=== PATIENT | female | born 1955 | race Caucasian/White ===

== ENCOUNTER 2017-07-02 10:32 | Day surgery (SDC) | payer BC ==
[~2017-07-02 10:32] MED LIST: Lactated Ringers 1,000 ML IV SCH; Lidocaine 1% 4 ML ONE; Lidocaine 1%/Sod Bicarbonate in NS 8.4% 1 ML Syringe PRN; Midazolam 1 MG/ML 2 ML SDV ONE; Propofol 200 MG/20 ML SDV ONE; Sodium Chloride 0.9% 10 ML Syringe FLUSH PRN; fentaNYL 100 MCG/2 ML SDV ONE
--- NOTE | 2017-07-02 10:56 | PCM.PREANE ---
Preanesthetic Assessment - Anesthesia/Transfusion/Family Hx Anesthesia History: Prior Anesthesia Without Reaction Family History of Anesthesia Reaction: No Transfusion History: No Prior Transfusion(s) - Review of Systems General: No Symptoms Pulmonary: No Symptoms Cardiovascular: Palpitations (ALWAYS HAS--normal for her) Gastrointestinal: No Symptoms Neurological: No Symptoms Other: Reports: Diabetes (borderline), Thyroid Problems, Depression, Anxiety - Physical Assessment NPO Status Date: 07/01/17 NPO Status Time: 20:00 Pulse: 50 O2 Sat by Pulse Oximetry: 95 Respiratory Rate: 16 Blood Pressure: 145/59 Temperature: 98.4 F Height: 5 ft 2 in Weight: 95 kg ASA Class: 2 Mental Status: Alert & Oriented x3 Airway Class: Mallampati = 1 Dentition: Reports: Normal Dentition, [place](s) (caps across front) Thyro-Mental Finger Breadths: 3 Mouth Opening Finger Breadths: 3 ROM/Head Extension: Full Lungs: Clear to Auscultation, Normal Respiratory Effort Cardiovascular: Regular Rate, Regular Rhythm - Allergies Allergies/Adverse Reactions: Allergies Allergy/AdvReac Type Severity Reaction Status Date / Time naproxen [From Naprosyn] Allergy Hives Verified 07/01/17 16:09 Penicillins AdvReac Tremors Verified 07/01/17 16:09 - Blood Blood Available: No - Anesthesia Plan Beta Rajwinder: Bisoprolol Med Last Dose Date: 07/01/17 Med Last Dose Time: 23:00 - Acknowledgements Anesthesia Type Planned: MAC Pt an Appropriate Candidate for the Planned Anesthesia: Yes Alternatives and Risks of Anesthesia Discussed w Pt/Guardian: Yes Pt/Guardian Understands and Agrees with Anesthesia Plan: Yes PreAnesthesia Questionnaire HEENT History: Reports: Impaired Vision, Sinusitis, Other (See Below) Other HEENT History: wears glasses Cardiovascular History: Reports: High Cholesterol, Hypertension, Other (See Below) Other Cardiovascular History: chest pain Respiratory History: Reports: Other (See Below) Other Respiratory History: acute bronchitis, cough [employer]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 Musculoskeletal History: Reports: None Neurological History: Reports: None Psychiatric History: Reports: Anxiety, Depression Endocrine/Metabolic History: Reports: Diabetes, Type II, Hypothyroidism, Obesity /BMI 30+ Hematologic History: Reports: None Immunologic History: Reports: Other (See Below) Other Immunologic History: fever Oncologic (Cancer) History: Reports: None Dermatologic History: Reports: None - Past Surgical History Head Surgeries/Procedures: Reports: None GI Surgical History: Reports: Cholecystectomy, Colonoscopy Female Surgical History: Reports: D&C Endocrine Surgical History: Reports: None Neurological Surgical History: Reports: None Oncologic Surgical History: Reports: None - SUBSTANCE USE Smoking Status *Q: Never Smoker Tobacco Use Within Last Twelve Months: No Second Hand Smoke Exposure: No Days Per Week of Alcohol Use: 1 (once a month) Recreational Drug Use History: No - HOME MEDS Home Medications: Home Meds Aspirin 325 mg PO DAILY 07/01/17 [History] Bisoprolol/Hydrochlorothiazide [Ziac 10-6.25 MG] 1 tab PO DAILY 07/01/17 [ History] Escitalopram Oxalate [Escitalopram Oxalate] 10 mg PO DAILY 07/01/17 [History] Fenofibric Acid (Choline) [Fenofibric Acid] 45 mg PO DAILY 07/01/17 [History] Levothyroxine Sodium [Levothyroxine Sodium] 88 mcg PO DAILY 07/01/17 [History] Multivitamin [Daily Multiple Vitamin] 1 tab PO DAILY 07/01/17 [History] - CURRENT (IN HOUSE) MEDS Current Meds: Current Medications Discontinued Medications Fentanyl (Sublimaze) Confirm Administered Dose 100 mcg .ROUTE .STK-MED ONE Stop: 07/02/17 08:07 Lactated Ringer's (Ringers, Lactated) 1,000 mls @ 125 mls/hr IV ASDIRECTED ARCELIA Stop: 07/01/17 23:00 Lidocaine HCl (Xylocaine-Mpf 1%) Confirm Administered Dose 4 mls @ as directed .ROUTE .STK-MED ONE Stop: 07/02/17 08:06 Lidocaine/Sodium Bicarbonate (Buffered Lidocaine 1% In Ns 8.4%) 0.25 ml .XX ONETIME PRN PRN Reason: Prior to IV Start Stop: 07/01/17 18:00 Midazolam HCl (Versed 1 Mg/Ml) Confirm Administered Dose 2 mg .ROUTE .STK-MED ONE Stop: 07/02/17 08:07 Propofol (Diprivan 20 Ml) Confirm Administered Dose 200 mg .ROUTE .STK-MED ONE Stop: 07/02/17 08:06 Sodium Chloride (Saline Flush) 10 ml FLUSH ASDIRECTED PRN PRN Reason: Keep Vein Open Stop: 07/01/17 18:00
[2017-07-02] MEDS ORDERED: Lactated Ringers 1,000 ML IV SCH (11:00)
[2017-07-02] MEDS ORDERED: Lidocaine 1%/Sod Bicarbonate in NS 8.4% 1 ML Syringe PRN (11:00)
[2017-07-02] MEDS ORDERED: Sodium Chloride 0.9% 10 ML Syringe FLUSH PRN (11:01)
--- NOTE | 2017-07-02 11:37 | PCM48HPAN ---
Post Anesthesia Note - EVALUATION WITHIN 48HRS OF ANESTHETIC Vital Signs in Normal Range: Yes Patient Participated in Evaluation: Yes Respiratory Function Stable: Yes Airway Patent: Yes Cardiovascular Function Stable: Yes Hydration Status Stable: Yes Pain Control Satisfactory: Yes Nausea and Vomiting Control Satisfactory: Yes Mental Status Recovered: Yes
--- NOTE | 2017-07-02 11:41 | PCM.OPNOTE ---
- General Post-Op/Procedure Note Date of Surgery/Procedure: 07/02/17 Operative Procedure(s): Colonoscopy with descending colonic polypectomy 1 using cold forceps Findings: 1. Sigmoid diverticulosis 2. Diminutive polyp descending colon Pre Op Diagnosis: Strong family history of colorectal cancer Post-Op Diagnosis: 1. Sigmoid diverticulosis. 2. Descending colonic polyp Anesthesia Technique: MAC, Moderate Sedation Primary Surgeon: Josesito Dennis Pathology: Descending colonic polyp less than 5 mm in diameter EBL in mLs: 0 Complications: None Condition: Good Free Text/Narrative:: Perianal inspection and digital rectal examination was unremarkable. The sphincter tone was normal. A lubricated colonoscope was inserted into the rectum and advanced under direct vision to the cecum which was identified. The bowel preparation was excellent. The cecum, ascending, and transverse colons were endoscopically normal with no mass lesions or inflammatory changes seen. The proximal descending colon had a very small polyp which was removed with cold forceps. The specimen was retrieved and sent to pathology. The area was hemostatic post biopsy. The sigmoid colon contained several small diverticuli which 1, treated. The proximal rectum was endoscopically normal. The retroflexed view was normal as well. Air was removed as I finished the procedure. Photographs were taken for the patient and for the medical record.
[2017-07-02 11:42] VITALS: BP 125/74
== END 2017-07-02 12:15 | disposition home or self-care (01) ==
LOC: JD.SDS 10:32
PROVIDERS: ATTEND Surgery
DX: Z12.11 Encounter for screening for malignant neoplasm of colon (principal); D12.4 Benign neoplasm of descending colon; Z80.0 Family history of malignant neoplasm of digestive organs; K57.30 Diverticulosis of large intestine without perforation or abscess without bleeding; F41.8 Other specified anxiety disorders; I10 Essential (primary) hypertension; E78.00 Pure hypercholesterolemia, unspecified; E78.5 Hyperlipidemia, unspecified; E03.9 Hypothyroidism, unspecified; E11.9 Type 2 diabetes mellitus without complications; Z88.0 Allergy status to penicillin; Z88.8 Allergy status to other drugs, medicaments and biological substances; Z79.82 Long term (current) use of aspirin; Z79.899 Other long term (current) drug therapy; Z98.890 Other specified postprocedural states; Z78.9 Other specified health status
CPT/HCPCS: 45380; J3010; J7120; 00810; J2250; J2704

== ENCOUNTER 2020-11-17 07:58 | Day surgery (SDC) | payer BC, MEDICARE ==
[~2020-11-17 07:58] MED LIST changes: -Lidocaine 1% 4 ML ONE; +Lidocaine 1%/Sod Bicarbonate in NS 8.4% 1 ML Syringe IDERM PRN; -Lidocaine 1%/Sod Bicarbonate in NS 8.4% 1 ML Syringe PRN; -Midazolam 1 MG/ML 2 ML SDV ONE; -Propofol 200 MG/20 ML SDV ONE; -fentaNYL 100 MCG/2 ML SDV ONE
[2020-11-17] MEDS ORDERED: fentaNYL 250 MCG/5 ML SDV ONE (07:59)
[2020-11-17] MEDS ORDERED: Lidocaine 1% 4 ML ONE (07:59)
[2020-11-17] MEDS ORDERED: Midazolam 1 MG/ML 2 ML SDV ONE (07:59)
[2020-11-17] MEDS ORDERED: Ondansetron 4 MG/2 ML SDV ONE (07:59)
[2020-11-17] MEDS ORDERED: Dexamethasone 4 MG/ML 5 ML MDV ONE (08:00)
[2020-11-17] MEDS ORDERED: Propofol 200 MG/20 ML SDV ONE (08:00)
--- NOTE | 2020-11-17 08:29 | PCM.PREANE ---
Preanesthetic Assessment - Procedure Proposed Procedure: hysteroscopy and d and c - Anesthesia/Transfusion/Family Hx Anesthesia History: Prior Anesthesia Without Reaction Family History of Anesthesia Reaction: No Transfusion History: No Prior Transfusion(s) - Review of Systems General: No Symptoms Pulmonary: No Symptoms Cardiovascular: No Symptoms Gastrointestinal: Abdominal Pain (earlier this week- gone now) Neurological: No Symptoms Other: Reports: Diabetes, Thyroid Problems, Depression, Anxiety - Physical Assessment NPO Status Date: 11/16/20 NPO Status Time: 22:00 Vital Signs: 131/72 65 92% 97.3 16 Height: 5 ft 2 in Weight: 92.3 kg ASA Class: 2 Mental Status: Alert & Oriented x3 Airway Class: Mallampati = 1 Dentition: Reports: Normal Dentition Thyro-Mental Finger Breadths: 3 Mouth Opening Finger Breadths: 3 ROM/Head Extension: Full Lungs: Clear to Auscultation, Normal Respiratory Effort Cardiovascular: Regular Rate, Regular Rhythm, No Murmurs - Lab Values: Laboratory Last Values POC Glucose 170 mg/dL (80-115) H 11/17/20 08:11 Urine Color Yellow (Yellow) 11/17/20 07:55 Urine Appearance Slt cloudy (Clear) H 11/17/20 07:55 Urine pH 5.0 (5.0-8.0) 11/17/20 07:55 Ur Specific [place] 1.025 (1.005-1.030) 11/17/20 07:55 Urine Protein Negative (Negative) 11/17/20 07:55 Urine Glucose (UA) 2+ (Negative) H 11/17/20 07:55 Urine Ketones Negative (Negative) 11/17/20 07:55 Urine Occult Blood Negative (Negative) 11/17/20 07:55 Urine Nitrite Negative (Negative) 11/17/20 07:55 Urine Bilirubin 1+ (Negative) H 11/17/20 07:55 Urine Urobilinogen 0.2 (0.2-1.0) 11/17/20 07:55 Ur Leukocyte Esterase Trace (Negative) H 11/17/20 07:55 - Allergies Allergies/Adverse Reactions: Allergies Allergy/AdvReac Type Severity Reaction Status Date / Time alendronate sodium Allergy Muscle Verified 11/16/20 16:52 [From Fosamax] Aches ciprofloxacin [From Cipro] Allergy Cannot Verified 11/16/20 16:52 Remember naproxen [From Naprosyn] Allergy Hives Verified 11/16/20 16:52 Penicillins AdvReac Tremors Verified 11/16/20 16:52 - Blood Blood Available: No - Anesthesia Plan Beta Rajwinder: Bisoprolol Med Last Dose Date: 11/16/20 Med Last Dose Time: 22:00 - Acknowledgements Anesthesia Type Planned: General Anesthesia Pt an Appropriate Candidate for the Planned Anesthesia: Yes Alternatives and Risks of Anesthesia Discussed w Pt/Guardian: Yes Pt/Guardian Understands and Agrees with Anesthesia Plan: Yes PreAnesthesia Questionnaire HEENT History: Reports: Impaired Vision, Sinusitis, Other (See Below) Other HEENT History: wears glasses Cardiovascular History: Reports: CAD, High Cholesterol, Hypertension, Other (See Below) Other Cardiovascular History: chest pain, abnormal stress test, palpitations, stent Respiratory History: Reports: Other (See Below) Other Respiratory History: acute bronchitis, cough, snores Gastrointestinal History: Reports: Other (See Below) Other Gastrointestinal History: bloody stools, diarrhea, rectal polyp 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: Musculoskeletal History: Reports: Neck Pain, Chronic, Other (See Below) Other Musculoskeletal History: left shoulder pain Neurological History: Reports: Other (See Below) Other Neuro History: dizziness, headache Psychiatric History: Reports: Anxiety, Depression Endocrine/Metabolic History: Reports: Diabetes, Type II, Hypothyroidism, Obesity/BMI 30+ Hematologic History: Reports: None Immunologic History: Reports: Other (See Below) Other Immunologic History: fever Oncologic (Cancer) History: Reports: None Dermatologic History: Reports: None - Past Surgical History Head Surgeries/Procedures: Reports: None Cardiovascular Surgical History: Reports: Coronary Artery Stent GI Surgical History: Reports: Cholecystectomy, Colonoscopy Female Surgical History: Reports: D&C Endocrine Surgical History: Reports: None Neurological Surgical History: Reports: None Oncologic Surgical History: Reports: None Dermatological Surgical History: Reports: None - SUBSTANCE USE Tobacco Use Status *Q: Never Tobacco User Tobacco Use Within Last Twelve Months: No Second Hand Smoke Exposure: No Days Per Week of Alcohol Use: 0 Recreational Drug Use History: No - HOME MEDS Home Medications: Home Meds Bisoprolol/Hydrochlorothiazide [Ziac 10-6.25 MG] 1 tab PO DAILY 07/01/17 [History] Escitalopram Oxalate 10 mg PO DAILY 07/01/17 [History] Multivitamin [Daily Multiple Vitamin] 1 tab PO DAILY 07/01/17 [History] Aspirin [Halfprin] 81 mg PO DAILY 11/24/18 [History] atorvaSTATin [Lipitor] 40 mg PO BEDTIME 11/24/18 [History] Empagliflozin [Jardiance] 25 mg PO DAILY 11/16/20 [History] Levothyroxine 112 mcg PO DAILY 11/16/20 [History] lisinopriL [Lisinopril] 5 mg PO DAILY 11/16/20 [History] metFORMIN [Glucophage XR] 500 mg PO BID 11/16/20 [History] - CURRENT (IN HOUSE) MEDS Current Meds: Current Medications Lactated Ringer's (Ringers, Lactated) 1,000 mls @ 125 mls/hr IV ASDIRECTED ARCELIA Lidocaine/Sodium Bicarbonate (Buffered Lidocaine 1% In Ns 8.4%) 0.25 ml IDERM ONETIME PRN PRN Reason: Prior to IV Start Sodium Chloride (Saline Flush) 10 ml FLUSH ASDIRECTED PRN PRN Reason: Keep Vein Open Discontinued Medications Dexamethasone (Dexamethasone) Confirm Administered Dose 20 mg .ROUTE .STK-MED ONE Stop: 11/17/20 08:01 Fentanyl (Sublimaze) Confirm Administered Dose 250 mcg .ROUTE .STK-MED ONE Stop: 11/17/20 08:00 Lidocaine HCl (Xylocaine-Mpf 1%) Confirm Administered Dose 4 mls @ as directed .ROUTE .STK-MED ONE Stop: 11/17/20 08:00 Midazolam HCl (Versed 1 Mg/Ml) Confirm Administered Dose 2 mg .ROUTE .STK-MED ONE Stop: 11/17/20 08:00 Ondansetron HCl (Zofran) Confirm Administered Dose 4 mg .ROUTE .STK-MED ONE Stop: 11/17/20 08:00 Propofol (Diprivan 20 Ml) Confirm Administered Dose 200 mg .ROUTE .STK-MED ONE Stop: 11/17/20 08:01
[2020-11-17] MEDS ORDERED: Ondansetron 4 MG/2 ML SDV IVPUSH PRN (09:24)
[2020-11-17] MEDS ORDERED: HYDROmorphone 0.5 MG/0.5 ML Syringe IVPUSH PRN (09:24)
[2020-11-17] MEDS ORDERED: fentaNYL 100 MCG/2 ML SDV IVPUSH PRN (09:24)
[2020-11-17] MEDS ORDERED: Ketorolac 30 MG/ML SDV ONE (09:28)
[2020-11-17] MEDS ORDERED: ePHEDrine 50 MG/ML SDV ONE (09:32)
[2020-11-17] MEDS ORDERED: Lactated Ringers 1,000 ML ONE (09:40)
--- NOTE | 2020-11-17 09:57 | PCM.POSTAN ---
POST ANESTHESIA ASSESSMENT - MENTAL STATUS Mental Status: Alert, Oriented - VITAL SIGNS Vital Signs: Last Vital Signs Temp 97.3 F 11/17/20 08:10 Pulse 64 11/17/20 08:10 Resp 16 11/17/20 08:10 BP 131/72 11/17/20 08:10 Pulse Ox 92 L 11/17/20 08:10 0951 81 14 98.0 152/84 96% - RESPIRATORY Respiratory Status: Respiratory Rate WNL, Airway Patent, O2 Saturation Stable, Supplemental Oxygen - CARDIOVASCULAR CV Status: Pulse Rate WNL, Blood Pressure Stable - GASTROINTESTINAL GI Status: No Symptoms - PAIN Pain Score: 0 - POST OP HYDRATION Hydration Status: Adequate & Stable
--- NOTE | 2020-11-17 11:40 | PCM48HPAN ---
Post Anesthesia Note - EVALUATION WITHIN 48HRS OF ANESTHETIC Vital Signs in Normal Range: Yes Patient Participated in Evaluation: Yes Respiratory Function Stable: Yes Airway Patent: Yes (encourage deep breathing and coughing) Cardiovascular Function Stable: Yes Hydration Status Stable: Yes Pain Control Satisfactory: Yes Nausea and Vomiting Control Satisfactory: Yes Mental Status Recovered: Yes (rests- denies nausea- states stomach hurts a bit) Vital Signs: Last Vital Signs Temp 98.0 F 11/17/20 09:51 Pulse 69 11/17/20 11:30 Resp 16 11/17/20 11:30 BP 131/85 11/17/20 11:30 Pulse Ox 99 11/17/20 11:30
--- NOTE | 2020-11-17 12:11 | PCM.OPNOTE ---
- General Post-Op/Procedure Note Date of Surgery/Procedure: 11/17/20 Operative Procedure(s): Hysteroscopy with dilation and curettage Findings: Grossly normal-appearing cervix without any bleeding from the cervical opening. Endometrial cavity with wispy fibrous tissue between the uterine figueredo. No polyps or thickened endometrium noted. Difficult to visualize the bilateral ostia due to the fibrous tissue present in the endometrial cavity. Small amount of endometrial tissue obtained with curettage. Pre Op Diagnosis: Postmenopausal bleeding with focal glandular crowding on endometrial biopsy Post-Op Diagnosis: Same Anesthesia Technique: General LMA Primary Surgeon: Stefano Powers Anesthesia Provider: Renee Sofia Pathology: Endometrial curettings Fluid Replacement, Intraop: 900 Output, Urine Amount: 0 (Voided prior to procedure) EBL in mLs: 30 Complications: None Condition: Good Free Text/Narrative:: Length of procedure: 20 minutes Procedure in Detail: Patient was seen in the preop area and counseled on risks, benefits and alternatives of the procedure and consents were signed prior to going back to the OR. She was taken back to OR #4 and given general anesthesia with laryngeal mask airway that was placed without difficulty. She was placed in dorsal lithotomy position using Yellofin stirrups. She was prepped and draped in a normal sterile fashion. A weighted speculum was placed in the vagina and the cervix was visualized with use of a right angle retractor. The anterior lip of the cervix was grasped with a single toothed tenaculum. The cervix was serially dilated to a 15 [place] dilator. A 5 mm hysteroscope was inserted into the uterine cavity and advanced to the uterine fundus. The ostia were difficult to see bilaterally due to the wispy fibrous tissue that was present in the endometrial cavity. The uterine cavity was noted to be overall normal in appearance with fibrous tissue noted for the entirety of the cavity. The hysteroscope was removed and a sharp curette was used to circumferentially curette the entirety of the uterine cavity where good cri was present in all directions. The curettings were sent for pathology. The procedure was complete at this time and the tenaculum was removed from the cervix. There was a small amount of bleeding noted from the tenaculum site on the right side of the cervix that was able to be controlled with direct pressure with a ring forceps and silver nitrate sticks. After the use of the ring forceps and silver nitrate good hemostasis was noted. All instruments were removed from the vagina. All needle and sponge counts were correct x 2. The patient was awoken and taken back to the recovery room in stable condition. Review of images IMG 001: Right fundal portion of the endometrial cavity where suspected tubal ostia is located, unable to visualize tubal ostia due to overlying tissue IMG 002: Left fundal portion of the endometrial cavity where suspected tubal ostia is located, unable to visualize tubal ostia due to overlying tissue IMG 003: Attempted global view of the endometrial cavity with difficulty visualization due to cloudy coloring in the fluid The patient will be discharged home when she is ambulating, tolerating PO, pain is well controlled with PO medications and she is voiding normally. She will follow up with Dr. Powers in the clinic within the next 1-2 weeks. She was given strict precautions to call the medical office or go to the Emergency Department if she is having severe vaginal bleeding of more than 1 pad per hour for three hours, uncontrollable pain, nausea, vomiting, or if she is having a fever greater than 100.4 FSabino Powers MD 12:09 PM 11/17/2020
[2020-11-17 12:56] VITALS: BP 122/65; PULSE 65
== END 2020-11-17 12:25 | disposition home or self-care (01) ==
LOC: JD.SDS 07:58
PROVIDERS: ATTEND Obstetrics & Gynecology
DX: N85.01 Benign endometrial hyperplasia (principal); E11.9 Type 2 diabetes mellitus without complications; E03.9 Hypothyroidism, unspecified; I10 Essential (primary) hypertension; E78.5 Hyperlipidemia, unspecified; I25.10 Atherosclerotic heart disease of native coronary artery without angina pectoris; E66.9 Obesity, unspecified; Z68.38 Body mass index [BMI] 38.0-38.9, adult; Z88.1 Allergy status to other antibiotic agents; Z88.0 Allergy status to penicillin; Z88.8 Allergy status to other drugs, medicaments and biological substances; Z79.84 Long term (current) use of oral hypoglycemic drugs; Z79.82 Long term (current) use of aspirin; Z79.890 Hormone replacement therapy; Z79.899 Other long term (current) drug therapy; Z95.5 Presence of coronary angioplasty implant and graft
CPT/HCPCS: 58558; 81003; 82962; J1100; J1885; J2250; J2405; J2704; J3010; J7120; 00952

== ENCOUNTER 2021-01-12 07:05 | Day surgery (SDC) | payer BC, MEDICARE ==
[2021-01-09 11:13] LABS: HEMOGLOBIN A1C 7.3 %
--- NOTE | 2021-01-10 10:25 | PCM.PREANE ---
Preanesthetic Assessment - Procedure Proposed Procedure: Laparoscopic Assisted Vaginal Hysterectomy with BSO - Anesthesia/Transfusion/Family Hx Anesthesia History: Prior Anesthesia Reaction Type of Anesthesia Reaction: Excessive Nausea/Vomiting Family History of Anesthesia Reaction: No Transfusion History: No Prior Transfusion(s) Intubation History: Unknown - Review of Systems General: No Symptoms Pulmonary: No Symptoms (ETOH: occasionally) Cardiovascular: No Symptoms (HTN, elevated cholesterol, CAD-stents 2019, PVC's), Palpitations Gastrointestinal: No Symptoms Neurological: No Symptoms, Headache (migraines) Other: Reports: None, Diabetes (152 blood sugar @ 0730), Thyroid Problems (Hypothyroid), Depression, Anxiety - Physical Assessment NPO Status Date: 01/11/21 NPO Status Time: 22:00 Vital Signs: HR:55 B/P:126/62 Sat:96% Temp:97.3 Resp:14 Height: 1.57 m Weight: 92 kg ASA Class: 3 Mental Status: Alert & Oriented x3 Airway Class: Mallampati = 3 Dentition: Reports: Normal Dentition, Caries Thyro-Mental Finger Breadths: 3 Mouth Opening Finger Breadths: 3 ROM/Head Extension: Full Lungs: Clear to Auscultation, Normal Respiratory Effort Cardiovascular: Regular Rate, Regular Rhythm, No Murmurs - Lab Values: Laboratory Last Values WBC 10.54 K/mm3 (3.98-10.04) H 01/09/21 08:55 RBC 5.15 M/mm3 (3.98-5.22) 01/09/21 08:55 Hgb 14.9 gm/dl (11.2-15.7) 01/09/21 08:55 Hct 47.3 % (34.1-44.9) H 01/09/21 08:55 MCV 91.8 fl (79.4-94.8) D 01/09/21 08:55 MCH 28.9 pg (25.6-32.2) 01/09/21 08:55 MCHC 31.5 g/dl (32.2-35.5) L 01/09/21 08:55 RDW Std Deviation 42.8 fL (36.4-46.3) 01/09/21 08:55 Plt Count 316 K/mm3 (182-369) 01/09/21 08:55 MPV 10.5 fl (9.4-12.3) 01/09/21 08:55 Neut % (Auto) 56.3 % (34.0-71.1) 01/09/21 08:55 Lymph % (Auto) 32.4 % (19.3-51.7) 01/09/21 08:55 [place] % (Auto) 7.6 % (4.7-12.5) 01/09/21 08:55 Eos % (Auto) 2.8 (0.7-5.8) 01/09/21 08:55 Baso % (Auto) 0.5 % (0.1-1.2) 01/09/21 08:55 Neut # (Auto) 5.93 K/mm3 (1.56-6.13) 01/09/21 08:55 Lymph # (Auto) 3.42 K/mm3 (1.18-3.74) 01/09/21 08:55 [place] # (Auto) 0.80 K/mm3 (0.24-0.36) H 01/09/21 08:55 Eos # (Auto) 0.30 K/mm3 (0.04-0.36) 01/09/21 08:55 Baso # (Auto) 0.05 K/mm3 (0.01-0.08) 01/09/21 08:55 Sodium 141 mEq/L (136-145) 01/09/21 08:55 Potassium 3.8 mEq/L (3.5-5.1) 01/09/21 08:55 Chloride 105 mEq/L (98-107) 01/09/21 08:55 Carbon Dioxide 28 mEq/L (21-32) 01/09/21 08:55 Anion Gap 11.8 (5-15) 01/09/21 08:55 BUN 12 mg/dL (7-18) 01/09/21 08:55 Creatinine 0.8 mg/dL (0.55-1.02) 01/09/21 08:55 Est Cr Clr Drug Dosing TNP 01/09/21 08:55 Estimated GFR (MDRD) > 60 mL/min (>60) 01/09/21 08:55 BUN/Creatinine Ratio 15.0 (14-18) 01/09/21 08:55 Glucose 146 mg/dL (80-115) H 01/09/21 08:55 Hemoglobin A1c 7.3 % (-5.6) H 01/09/21 08:55 Calcium 8.8 mg/dL (8.5-10.1) 01/09/21 08:55 Total Bilirubin 0.5 mg/dL (0.2-1.0) 01/09/21 08:55 AST 21 U/L (15-37) 01/09/21 08:55 ALT 32 U/L (14-59) 01/09/21 08:55 Alkaline Phosphatase 83 U/L (46-116) 01/09/21 08:55 Total Protein 7.7 g/dl (6.4-8.2) 01/09/21 08:55 Albumin 3.7 g/dl (3.4-5.0) 01/09/21 08:55 Globulin 4.0 gm/dL 01/09/21 08:55 Albumin/Globulin Ratio 0.9 (1-2) L 01/09/21 08:55 Urine Color Yellow (Yellow) 01/09/21 08:55 Urine Appearance Clear (Clear) 01/09/21 08:55 Urine pH 5.5 (5.0-8.0) 01/09/21 08:55 Ur Specific [place] 1.025 (1.005-1.030) 01/09/21 08:55 Urine Protein Negative (Negative) 01/09/21 08:55 Urine Glucose (UA) 2+ (Negative) H 01/09/21 08:55 Urine Ketones Negative (Negative) 01/09/21 08:55 Urine Occult Blood Negative (Negative) 01/09/21 08:55 Urine Nitrite Negative (Negative) 01/09/21 08:55 Urine Bilirubin Negative (Negative) 01/09/21 08:55 Urine Urobilinogen 0.2 (0.2-1.0) 01/09/21 08:55 Ur Leukocyte Esterase Negative (Negative) 01/09/21 08:55 Urine RBC 0-5 /hpf (0-5) 01/09/21 08:55 Urine WBC 0-5 /hpf (0-5) 01/09/21 08:55 Ur Squamous Epith Cells 0-5 /hpf (0-5) 01/09/21 08:55 Urine Bacteria Few /hpf (FEW) 01/09/21 08:55 Urine Mucus Rare /hpf (FEW) 01/09/21 08:55 Blood Type O NEGATIVE 01/09/21 08:55 Gel Antibody Screen Negative 01/09/21 08:55 Above labs reviewed and noted and within acceptable ranges to proceed with scheduled procedure. - Imaging/EKG Impressions: EKG: Sinus bradycardia rate=52 Echocardiogram: 11/2017- EF=65% Cardiolyte Stress Test: 2019 negative - Allergies Allergies/Adverse Reactions: Allergies Allergy/AdvReac Type Severity Reaction Status Date / Time alendronate sodium Allergy Muscle Verified 01/10/21 14:20 [From Fosamax] Aches ciprofloxacin [From Cipro] Allergy Cannot Verified 01/10/21 14:20 Remember naproxen [From Naprosyn] Allergy Hives Verified 01/10/21 14:20 Penicillins AdvReac Tremors Verified 01/10/21 14:20 - Anesthesia Plan Pre-Op Medication Ordered: Beta Rajwinder Beta Rajwinder: Bisoprolol Med Last Dose Date: 01/11/21 Med Last Dose Time: 22:00 - Acknowledgements Anesthesia Type Planned: General Anesthesia Pt an Appropriate Candidate for the Planned Anesthesia: Yes Alternatives and Risks of Anesthesia Discussed w Pt/Guardian: Yes Pt/Guardian Understands and Agrees with Anesthesia Plan: Yes PreAnesthesia Questionnaire HEENT History: Reports: Impaired Vision, Sinusitis, Other (See Below) Other HEENT History: wears glasses Cardiovascular History: Reports: High Cholesterol, Hypertension, Other (See Below) Other Cardiovascular History: chest pain Respiratory History: Reports: Other (See Below) Other Respiratory History: acute bronchitis, cough Gastrointestinal History: Reports: Other (See Below) Other Gastrointestinal History: bloody stools, diarrhea, rectal polyp RETAIL AND PROMOTIONS COORDINATOR History: Reports: None Musculoskeletal History: Reports: None Other Musculoskeletal History: left shoulder pain Neurological History: Reports: None Other Neuro History: dizziness, headache Psychiatric History: Reports: Anxiety, Depression Endocrine/Metabolic History: Reports: Diabetes, Type II, Hypothyroidism, Obesity/BMI 30+ Hematologic History: Reports: None Immunologic History: Reports: Other (See Below) Other Immunologic History: fever Oncologic (Cancer) History: Reports: None Dermatologic History: Reports: None - Past Surgical History Head Surgeries/Procedures: Reports: None Cardiovascular Surgical History: Reports: Coronary Artery Stent GI Surgical History: Reports: Cholecystectomy, Colonoscopy Female Surgical History: Reports: D&C Endocrine Surgical History: Reports: None Neurological Surgical History: Reports: None Oncologic Surgical History: Reports: None Dermatological Surgical History: Reports: None - HOME MEDS Home Medications: Home Meds Bisoprolol/Hydrochlorothiazide [Ziac 10-6.25 MG] 1 tab PO DAILY 07/01/17 [History] Escitalopram Oxalate 10 mg PO DAILY 07/01/17 [History] Multivitamin [Daily Multiple Vitamin] 1 tab PO DAILY 07/01/17 [History] Aspirin [Halfprin] 81 mg PO DAILY 11/24/18 [History] atorvaSTATin [Lipitor] 40 mg PO BEDTIME 11/24/18 [History] Empagliflozin [Jardiance] 25 mg PO DAILY 11/16/20 [History] Levothyroxine 112 mcg PO DAILY 11/16/20 [History] lisinopriL [Lisinopril] 5 mg PO DAILY 11/16/20 [History] metFORMIN [Glucophage XR] 500 mg PO BID 11/16/20 [History] - CURRENT (IN HOUSE) MEDS Current Meds: Current Medications Lactated Ringer's (Ringers, Lactated) 1,000 mls @ 125 mls/hr IV ASDIRECTED ARCEILA Stop: 01/12/21 23:00 Lidocaine/Sodium Bicarbonate (Lidocaine 1%/Sod Bicarbonate In Ns 8.4% 1 Ml Syringe) 0.25 ml IDERM ONETIME PRN PRN Reason: Prior to IV Start Stop: 01/12/21 23:00 Sodium Chloride (Sodium Chloride 0.9% 10 Ml Syringe) 10 ml FLUSH ASDIRECTED PRN PRN Reason: Keep Vein Open Stop: 01/12/21 23:00
[2021-01-12] MEDS ORDERED: Lidocaine 1% 4 ML ONE (07:15)
[2021-01-12] MEDS ORDERED: Ketorolac 30 MG/ML SDV ONE (07:15)
[2021-01-12] MEDS ORDERED: Dexamethasone 4 MG/ML 5 ML MDV ONE (07:15)
[2021-01-12] MEDS ORDERED: Lactated Ringers 1,000 ML ONE ×2 (07:15→09:16)
[2021-01-12] MEDS ORDERED: Rocuronium 50 MG/5 ML Vial ONE (07:15)
[2021-01-12] MEDS ORDERED: Ondansetron 4 MG/2 ML SDV ONE (07:15)
[2021-01-12] MEDS ORDERED: Midazolam 1 MG/ML 2 ML SDV ONE (07:16)
[2021-01-12] MEDS ORDERED: fentaNYL 250 MCG/5 ML SDV ONE (07:16)
[2021-01-12] MEDS ORDERED: Propofol 200 MG/20 ML SDV ONE (07:16)
[2021-01-12] MEDS ORDERED: HYDROmorphone 0.5 MG/0.5 ML Syringe ONE ×2 (07:16→08:53)
[2021-01-12] MEDS ORDERED: Sodium Chloride 0.9% 50 ML SDV ONE (07:23)
[2021-01-12] MEDS ORDERED: Bupivacaine 0.5% 30 ML SDV ONE (07:23)
[2021-01-12] MEDS ORDERED: Lidocaine 1% with EPINEPHrine 1:100,000 10 ML MDV ONE ×2 (07:23→07:24)
[2021-01-12] MEDS ORDERED: Scopolamine 1.5 MG Transdermal Patch TRDERM PRN (07:30)
[2021-01-12] MEDS ORDERED: ePHEDrine 50 MG/ML SDV ONE (08:20)
[2021-01-12] MEDS ORDERED: fentaNYL 100 MCG/2 ML SDV IVPUSH PRN (08:28)
[2021-01-12] MEDS ORDERED: diphenhydrAMINE 50 MG/ML SDV IVPUSH PRN (08:28)
[2021-01-12] MEDS ORDERED: Ondansetron 4 MG/2 ML SDV IVPUSH PRN (08:28)
[2021-01-12] MEDS ORDERED: HYDROmorphone 0.5 MG/0.5 ML Syringe IVPUSH PRN (08:28)
[2021-01-12] MEDS ORDERED: ePHEDrine 50 MG/ML SDV IVPUSH PRN (08:28)
[2021-01-12] MEDS ORDERED: Albuterol 0.083% 2.5 MG/3 ML Neb Soln NEB PRN (08:28)
[2021-01-12] MEDS ORDERED: Phenylephrine 1% 10 MG/ML SDV IVPUSH PRN (08:28)
[2021-01-12] MEDS ORDERED: Albuterol 6.7 GM Inhaler INH ONE (08:37)
[2021-01-12] MEDS ORDERED: Labetalol 100 MG/20 ML MDV ONE (08:46)
[2021-01-12] MEDS ORDERED: fentaNYL 100 MCG/2 ML SDV ONE (09:01)
--- NOTE | 2021-01-12 10:10 | PCM.OPNOTE ---
- General Post-Op/Procedure Note Date of Surgery/Procedure: 01/12/21 Operative Procedure(s): Laparoscopic-assisted vaginal hysterectomy with bilateral salpingo-oophorectomy Findings: Grossly normal-appearing cervix, uterus and bilateral fallopian tubes and ovaries. The right fallopian tube did have a small paratubal cyst present. Grossly normal-appearing appendix. Grossly normal-appearing visualized portions of the intestines. Normal-appearing portions of the liver and upper abdomen. Pre Op Diagnosis: Postmenopausal bleeding with complex endometrial hyperplasia without atypia on previous D&C Post-Op Diagnosis: Same Anesthesia Technique: General ET Tube Primary Surgeon: Stefano Powers Anesthesia Provider: Shara Vigil Floor Runner: Gilbert Pagan Reason Floor Runner Was Necessary: Patient safety and reduction of morbidity and mortality Role of Floor Runner: Use of laparoscopic instruments for portions of the procedure and retraction for visualization Pathology: Uterus, cervix and bilateral fallopian tubes and ovaries Fluid Replacement, Intraop: 1,500 Output, Urine Amount: 150 EBL in mLs: 180 Complications: None Condition: Good Free Text/Narrative:: Length of procedure: 74 minutes Procedure in detail: The patient was seen in the preoperative holding area and risks, benefits, indications, and alternatives of the procedure were reviewed with the patient and she desired to proceed with a laparoscopic assisted vaginal hysterectomy, bilateral salpingo-oophorectomy and possible total abdominal hy sterectomy. Consents were reviewed. The patient was taken back to the OR and given general anesthesia with an endotracheal tube which was placed without difficulty. She was placed in dorsal lithotomy position using Yellofin stirrups. She was prepped and draped in normal sterile fashion. A Cohen catheter was placed without difficulty. Attention was then turned to her umbilicus and it was injected with 0.5% Marcaine and a 5 mm stab incision was made with a scalpel and a Veress needle was then inserted through the incision. The gas was turned on, with an opening pressure of 7 mmHg. Pneumoperitoneum was continued until 15 mmHg pressure. A 5 mm trocar was then inserted under direct visualization through the incision without difficulty. Attention was then turned to the patient's right lower quadrant where an avascular space approximately nursing home between the ASIS and the umbilicus was identified. Local anesthetic was injected and a 5 mm incision was made with a scalpel. A 5 mm trocar was then inserted under direct visualization of the laparoscope. Attention was then turned to the left lower quadrant, where again an avascular portion of the abdominal wall was identified approximately nursing home between the ASIS and the umbilicus. Local anesthetic was injected and a scalpel was used to make a 5 mm incision. A 5 mm trocar was inserted under direct visualization with the laparoscope. Attention was then turned to the pelvis where the uterus was visualized and noted be normal in appearance with normal appearing bilateral fallopian tubes and normal-appearing bilateral ovaries. The right fallopian tube did have a small paratubal cyst noted. The atraumatic grasper was then removed from the right lower trocar and a Enseal vessel sealing device was introduced and was used to transect the right IP ligament down to the uterus. The right round ligament was then transected using the Enseal vessel sealing device. The right side of the uterus and broad ligament were then transected using the Enseal vessel sealing device until the level of the uterovesical peritoneal reflection. This was repeated on the patient's left side. The IP ligament was transected down to the level of the uterus. The left round ligament was transected using Enseal vessel sealing device and the broad ligament was transected to the level of the uterovesical peritoneal reflection. The pelvis was then inspected for hemostasis at this time and hemostasis was noted. All instruments were removed from the abdomen. Attention was then turned to the patient's perineum where a weighted speculum was placed into the vagina and a Morgan retractor was used to visualize the cervix. The cervix was grasped with a double-tooth tenaculum. The cervical reflection point was then injected circumferentially with 0.25% lidocaine with epinephrine. The cervix was then circumferentially incised with a scalpel. The bladder was then dissected off the pubovesical cervical fascia anteriorly with Metzenbaum scissors. The same procedure was performed posteriorly and the posterior cul-de-sac was entered sharply without difficulty using Metzenbaum scissors. At this point, an Enseal vessel sealing device was placed over the uterosacral ligaments on the patient's right side. These were cauterized and ligated with the device. This was repeated on the patient's left side. Hemostasis was assured. The anterior cul-de-sac was then able to be entered with sharp dissection using Salcido scissors. The cardinal ligaments were then clamped on both sides using the Enseal vessel sealing device, cauterized and transected with the device. The uterine artery on the patient's right side side and the remainder of the broad ligament were then serially clamped with the Enseal vessel sealing device, cauterized and transected with the device. Excellent hemostasis was noted. The cervix and uterus was able to be delivered at this time. The posterior vaginal cuff was closed with running locked sutures of 0 Monocryl. The vaginal cuff was then closed in a horizontal fashion using running locked sutures with 0 Monocryl suture. All instruments were removed from the vagina. Attention was then turned to the abdomen where a laparoscope was inserted and was used to check for hemostasis. Hemostasis was noted at this time. The case was complete at this time. The gas was then evacuated from the peritoneum and trocars removed. These were closed using 4-0 Monocryl suture and Dermabond. The patient was awoken from general anesthesia and taken to the PACU for recovery in stable condition. She will be discharged to home once she is able to meet all postoperative milestones including tolerating small amount of oral intake and liquids, ambulate without difficulty, her pain controlled with oral medications and able to void without difficulty. She will follow-up in the clinic in 2 weeks or earlier as needed. Sponge, lap, needle, and instrument counts were correct x 2. Review of images from the case IMG 001: Right fallopian tube and ovary and visualized portion of the uterus. Grossly normal in appearance. Small paratubal cyst noted on the right fallopian tube. IMG 002: Left fallopian tube and ovary has well small portion of the uterus was visualized. Grossly normal in appearance. IMG 003: Left pelvic sidewall status post hysterectomy with hemostasis noted. IMG 004: Right pelvic sidewall with hemostasis noted status post hysterectomy. IMG 005: Vaginal cuff with hemostasis noted. This area was monitored for several minutes to monitor for bleeding and there was no pooling of blood noted. IMG 006: Appendix without any abnormalities noted IMG 007: Right lower quadrant trocar site after removal of the trocar. Hemostasis noted. IMG 008: Left lower quadrant trocar site with hemostasis noted after removal. No bleeding noted. IMG 009: Right upper quadrant with visualized portions of the liver edge that was normal in appearance. IMG 010: Left upper quadrant of the abdomen with visualized portions of the liver edge normal in appearance. Stefano Powers MD 10:10 AM 01/12/2021
[2021-01-12] MEDS ORDERED: hydrALAZINE 20 MG/ML SDV IVPUSH PRN (10:33)
--- NOTE | 2021-01-12 10:35 | PCM.POSTAN ---
POST ANESTHESIA ASSESSMENT - MENTAL STATUS Mental Status: Alert - VITAL SIGNS Vital Signs: Last Vital Signs Temp 97.6 01/12/21 1021 Pulse 87 01/12/21 1021 Resp 15 01/12/21 1021 BP 130/63 01/12/21 1021 Pulse Ox 94% 01/12/21 1021 - RESPIRATORY Respiratory Status: Respiratory Rate WNL, Airway Patent, O2 Saturation Stable, Supplemental Oxygen - CARDIOVASCULAR CV Status: Pulse Rate WNL, Blood Pressure Stable - GASTROINTESTINAL GI Status: No Symptoms - POST OP HYDRATION Hydration Status: Adequate & Stable
--- NOTE | 2021-01-12 11:51 | PCM48HPAN ---
Post Anesthesia Note - EVALUATION WITHIN 48HRS OF ANESTHETIC Vital Signs in Normal Range: Yes Patient Participated in Evaluation: Yes Respiratory Function Stable: Yes Airway Patent: Yes Cardiovascular Function Stable: Yes Hydration Status Stable: Yes Pain Control Satisfactory: Yes Nausea and Vomiting Control Satisfactory: Yes Mental Status Recovered: Yes Vital Signs: Last Vital Signs Temp 36.3 C 01/12/21 10:50 Pulse 75 01/12/21 11:05 Resp 13 01/12/21 11:05 BP 117/51 L 01/12/21 11:05 Pulse Ox 98 01/12/21 11:05
[2021-01-12] MEDS: Acetaminophen/oxyCODONE 325-5 MG Tab PO PRN ×2 (14:41→20:27)
[2021-01-12] MEDS ORDERED: Ibuprofen 600 MG Tab PO ONE (18:00)
--- NOTE | 2021-01-12 18:06 | PCM.SURGPN ---
- General Info Date of Service: 01/12/21 Date of Surgery/Procedure: 01/12/21 POD#: 0 Post-Op Diagnosis: Status post laparoscopic assisted vaginal hysterectomy with bilateral salpingo-oophorectomy Functional Status: Reports: Pain Controlled, Tolerating Diet, Ambulating, Urinating (Approximately 100 mL of urine, 500 mL of urine on straight cath) - Review of Systems General: Denies: Fever, Weakness, Fatigue, Malaise HEENT: Reports: Headaches (Mild headache starting this evening) Pulmonary: Denies: Shortness of Breath, Pleuritic Chest Pain Genitourinary: Denies: Dysuria, Frequency, Burning, Pain, Urgency - Patient Data Vitals - Most Recent: Last Vital Signs Temp 36.6 C 01/12/21 15:14 Pulse 91 01/12/21 15:14 Resp 16 01/12/21 15:14 BP 145/81 H 01/12/21 15:14 Pulse Ox 99 01/12/21 15:14 Weight - Most Recent: 92 kg I&O - Last 24 Hours: Intake & Output 01/12/21 01/12/21 01/12/21 06:59 14:59 22:59 Intake Total 1800 1100 Output Total 300 600 Balance 1500 500 Lab Results Last 24 Hrs: Laboratory Results - last 24 hr 01/12/21 01/12/21 Range/Units 07:30 12:02 POC Glucose 152 H 211 H (80-115) mg/dL Med Orders - Current: Current Medications Bethanechol Chloride (Bethanechol 10 Mg Tab) 10 mg PO Q6H [facility] Last Admin: 01/12/21 16:06 Dose: 10 mg Documented by: Hydralazine HCl (Hydralazine 20 Mg/Ml Sdv) 4 mg IVPUSH Q2H PRN PRN Reason: elevated blood pressure. Stop: 01/12/21 23:00 Last Admin: 01/12/21 11:22 Dose: 4 mg Documented by: Lactated Ringer's (Ringers, Lactated) 1,000 mls @ 125 mls/hr IV ASDIRECTED [facility] Stop: 01/12/21 23:00 Last Admin: 01/12/21 07:25 Dose: 125 mls/hr Documented by: Lidocaine/Sodium Bicarbonate (Lidocaine 1%/Sod Bicarbonate In Ns 8.4% 1 Ml Syringe) 0.25 ml IDERM ONETIME PRN PRN Reason: Prior to IV Start Stop: 01/12/21 23:00 Oxycodone/Acetaminophen (Acetaminophen/Oxycodone 325-5 Mg Tab) 1 - 2 tab PO Q6H PRN PRN Reason: Pain Last Admin: 01/12/21 14:41 Dose: 1 tab Documented by: Sodium Chloride (Sodium Chloride 0.9% 10 Ml Syringe) 10 ml FLUSH ASDIRECTED PRN PRN Reason: Keep Vein Open Stop: 01/12/21 23:00 Discontinued Medications Albuterol (Albuterol 0.083% 2.5 Mg/3 Ml Neb Soln) 2.5 mg NEB ONETIME PRN PRN Reason: bronchodilation Stop: 01/12/21 12:00 Last Admin: 01/12/21 11:02 Dose: 2.5 mg Documented by: Albuterol (Albuterol 6.7 Gm Inhaler) Confirm Administered Dose 6.7 gm INH .STK- MED ONE Stop: 01/12/21 08:38 Bupivacaine HCl (Bupivacaine 0.5% 30 Ml Sdv) Confirm Administered Dose 30 ml .ROUTE .STK-MED ONE Stop: 01/12/21 07:24 Last Admin: 01/12/21 08:26 Dose: 12 ml Documented by: Dexamethasone (Dexamethasone 4 Mg/Ml 5 Ml Mdv) Confirm Administered Dose 20 mg .ROUTE .STK-MED ONE Stop: 01/12/21 07:16 Diphenhydramine HCl (Diphenhydramine 50 Mg/Ml Sdv) 25 mg IVPUSH Q6H PRN PRN Reason: pruritis Stop: 01/12/21 12:00 Ephedrine Sulfate (Ephedrine 50 Mg/Ml Sdv) Confirm Administered Dose 50 mg .ROUTE .STK-MED ONE Stop: 01/12/21 08:21 Ephedrine Sulfate (Ephedrine 50 Mg/Ml Sdv) 5 mg IVPUSH ASDIRECTED PRN PRN Reason: Hypotension Stop: 01/12/21 12:00 Fentanyl (Fentanyl 250 Mcg/5 Ml Sdv) Confirm Administered Dose 250 mcg .ROUTE .STK-MED ONE Stop: 01/12/21 07:17 Fentanyl (Fentanyl 100 Mcg/2 Ml Sdv) 50 mcg IVPUSH Q20M PRN PRN Reason: Pain Stop: 01/12/21 12:00 Fentanyl (Fentanyl 100 Mcg/2 Ml Sdv) Confirm Administered Dose 100 mcg .ROUTE .STK-MED ONE Stop: 01/12/21 09:02 Glycopyrrolate (Glycopyrrolate 0.2 Mg/Ml 2 Ml Syringe) Confirm Administered Dose 1.2 mg .ROUTE .STK-MED ONE Stop: 01/12/21 09:10 Hydromorphone HCl (Hydromorphone 0.5 Mg/0.5 Ml Syringe) Confirm Administered Dose 0.5 mg .ROUTE .STK-MED ONE Stop: 01/12/21 07:17 Hydromorphone HCl (Hydromorphone 0.5 Mg/0.5 Ml Syringe) 0.5 mg IVPUSH Q10M PRN PRN Reason: Pain (severe 7-10) Stop: 01/12/21 12:00 Hydromorphone HCl (Hydromorphone 0.5 Mg/0.5 Ml Syringe) Confirm Administered Dose 0.5 mg .ROUTE .STK-MED ONE Stop: 01/12/21 08:54 Lidocaine HCl (Xylocaine-Mpf 1%) Confirm Administered Dose 4 mls @ as directed .ROUTE .STK-MED ONE Stop: 01/12/21 07:16 Lactated Ringer's (Ringers, Lactated) Confirm Administered Dose 1,000 mls @ as directed .ROUTE .STK-MED ONE Stop: 01/12/21 07:16 Lactated Ringer's (Ringers, Lactated) Confirm Administered Dose 1,000 mls @ as directed .ROUTE .STK-MED ONE Stop: 01/12/21 09:17 Ketorolac Tromethamine (Ketorolac 30 Mg/Ml Sdv) Confirm Administered Dose 30 mg .ROUTE .STK-MED ONE Stop: 01/12/21 07:16 Labetalol HCl (Labetalol 100 Mg/20 Ml Mdv) Confirm Administered Dose 100 mg .ROUTE .STK-MED ONE Stop: 01/12/21 08:47 Lidocaine/Epinephrine (Lidocaine 1% With Epinephrine 1:100,000 10 Ml Mdv) Confirm Administered Dose 10 ml .ROUTE .STK-MED ONE Stop: 01/12/21 07:24 Lidocaine/Epinephrine (Lidocaine 1% With Epinephrine 1:100,000 10 Ml Mdv) Confirm Administered Dose 10 ml .ROUTE .STK-MED ONE Stop: 01/12/21 07:25 Last Admin: 01/12/21 08:56 Dose: 5 ml Documented by: Midazolam HCl (Midazolam 1 Mg/Ml 2 Ml Sdv) Confirm Administered Dose 2 mg .ROUTE .Unified Social-MED ONE Stop: 01/12/21 07:17 Miscellaneous Medication (Phenylephrine Hcl In 0.9% Nacl 1 Mg/10 Ml Syringe) Confirm Administered Dose 1 mg .ROUTE .Unified Social-MED ONE Stop: 01/12/21 08:31 Neostigmine Methylsulfate (Neostigmine Methylsulfate 5 Mg/5 Ml Syringe) Confirm Administered Dose 5 mg .ROUTE .Unified Social-MED ONE Stop: 01/12/21 09:10 Ondansetron HCl (Ondansetron 4 Mg/2 Ml Sdv) Confirm Administered Dose 4 mg .ROUTE .Unified Social-[employer] ONE Stop: 01/12/21 07:16 Ondansetron HCl (Ondansetron 4 Mg/2 Ml Sdv) 4 mg IVPUSH ONETIME PRN PRN Reason: Nausea/Vomiting Stop: 01/12/21 12:00 Phenylephrine HCl (Phenylephrine 1% 10 Mg/Ml Sdv) 0.1 mg IVPUSH Q10M PRN PRN Reason: Hypotension Stop: 01/12/21 12:00 Propofol (Propofol 200 Mg/20 Ml Sdv) Confirm Administered Dose 200 mg .ROUTE .Unified Social-MED ONE Stop: 01/12/21 07:17 Rocuronium [place] (Rocuronium 50 Mg/5 Ml Vial) Confirm Administered Dose 50 mg .ROUTE .Unified Social-[employer] ONE Stop: 01/12/21 07:16 Scopolamine (Scopolamine 1.5 Mg Transdermal Patch) 1.5 mg TRDERM ONETIME PRN PRN Reason: ponv Stop: 01/12/21 12:00 Last Admin: 01/12/21 07:36 Dose: 1.5 mg Documented by: Sodium Chloride (Sodium Chloride 0.9% 50 Ml Sdv) Confirm Administered Dose 50 ml .ROUTE .Unified Social-MED ONE Stop: 01/12/21 07:24 Last Admin: 01/12/21 08:56 Dose: 15 ml Documented by: - Exam General: Alert, Oriented HEENT: EOMI Lungs: Normal Respiratory Effort Cardiovascular: Regular Rate Extremities: Pedal Edema Skin: Warm, Dry, Intact Psy/Mental Status: Alert, Normal Affect, Normal Mood Physical Findings Comment:: Normal-appearing perineum without any bleeding present. Straight catheterization performed with return of 500 mL of urine. Sepsis Event Note - Evaluation Sepsis Screening Result: No Definite Risk - Focused Exam Vital Signs: Vital Signs Temp Temp Pulse Pulse Resp BP BP 01/12/21 15:14 36.6 C 91 16 145/81 H 01/12/21 14:50 95 16 111/59 L 01/12/21 14:20 36.7 C 91 16 123/67 01/12/21 13:40 01/12/21 13:30 86 14 108/59 L 01/12/21 13:01 01/12/21 13:00 36.2 C 84 12 127/62 01/12/21 12:30 82 14 113/49 L 01/12/21 12:00 36.7 C 76 12 107/47 L 01/12/21 11:30 36.3 C 66 14 106/49 L 01/12/21 11:20 36.4 C 67 13 109/57 L 01/12/21 11:05 75 13 117/51 L 01/12/21 11:00 01/12/21 10:50 36.3 C 78 12 119/50 L 01/12/21 10:43 01/12/21 10:35 36.3 C 73 9 L 149/59 H 01/12/21 10:25 01/12/21 10:21 36.4 C 87 15 130/63 01/12/21 08:30 01/12/21 07:10 36.3 C 55 L 14 126/62 Pulse Ox Pulse Ox Pulse Ox 01/12/21 15:14 99 01/12/21 14:50 94 L 01/12/21 14:20 97 01/12/21 13:40 96 01/12/21 13:30 93 L 01/12/21 13:01 96 01/12/21 13:00 97 01/12/21 12:30 92 L 01/12/21 12:00 97 01/12/21 11:30 98 01/12/21 11:20 97 01/12/21 11:05 98 01/12/21 11:00 98 01/12/21 10:50 96 01/12/21 10:43 96 01/12/21 10:35 96 01/12/21 10:25 90 L 01/12/21 10:21 94 L 94 L 01/12/21 08:30 97 01/12/21 07:10 96 - Problem List & Annotations (1) S/P laparoscopic assisted vaginal hysterectomy (LAVH) SNOMED Code(s): 815724047, 25835590, 343831735 Code(s): Z90.710 - ACQUIRED ABSENCE OF BOTH CERVIX AND UTERUS Status: Acute Current Visit: Yes (2) S/P bilateral salpingo-oophorectomy SNOMED Code(s): 779701438, 485242848 Code(s): Z90.722 - ACQUIRED ABSENCE OF OVARIES, BILATERAL Status: Acute Current Visit: Yes (3) Complex endometrial hyperplasia without atypia SNOMED Code(s): 93108330123921901 Code(s): N85.01 - BENIGN ENDOMETRIAL HYPERPLASIA Status: Acute Current Visit: Yes - Problem List Review Problem List Initiated/Reviewed/Updated: Yes - My Orders Last 24 Hours: Active Orders 24 hr Category Date Time Status Blood Glucose Check, Bedside [RC] ONETIME Care 01/12/21 00:01 Active Blood Glucose Check, Bedside [RC] ONETIME Care 01/12/21 08:27 Active Communication Order [RC] PER UNIT ROUTINE Care 01/12/21 15:26 Active Communication Order [RC] ROUTINE Care 01/12/21 08:27 Active Cooling Warming Measures [RC] ASDIRECTED Care 01/12/21 08:27 Active Notify Provider [RC] ASDIRECTED Care 01/12/21 08:27 Active Oxygen Therapy [RC] ASDIRECTED Care 01/12/21 08:27 Active Peripheral IV Care [RC] . DIRECTED Care 01/12/21 00:01 Active Pulse Oximetry [RC] ASDIRECTED Care 01/12/21 08:27 Active RT Aerosol Therapy [RC] ASDIRECTED Care 01/12/21 08:30 Active Ready for Discharge [RC] PER UNIT ROUTINE Care 01/12/21 10:01 Active Verify Patient Consent Obtain [RC] ASDIRECTED Care 01/12/21 00:01 Active Vital Signs [RC] Q1HR Care 01/12/21 08:27 Active Regular Diet [DIET] Diet 01/12/21 Dinner Active Acetaminophen/oxyCODONE [Percocet 325-5 MG] Med 01/12/21 14:34 Active 1 - 2 tab PO Q6H PRN Bethanechol [Urecholine] Med 01/12/21 16:00 Active 10 mg PO Q6H Lactated Ringers [Ringers, Lactated] 1,000 ml Med 01/12/21 00:01 Active IV ASDIRECTED Lidocaine 1%/Sod Bicarbonate [Buffered Lidocaine 1% in Med 01/12/21 00:01 Active NS 8.4%] 0.25 ml IDERM ONETIME PRN Sodium Chloride 0.9% [Saline Flush] Med 01/12/21 00:01 Active 10 ml FLUSH ASDIRECTED PRN hydrALAZINE [Apresoline] Med 01/12/21 10:33 Active 4 mg IVPUSH Q2H PRN Medication Administration Instruction [OM.PC] Routine Oth 01/12/21 00:01 Ordered Peripheral IV Insertion Adult [OM.PC] Routine Oth 01/12/21 00:01 Ordered Medication Orders Bethanechol Chloride (Bethanechol 10 Mg Tab) 10 mg PO Q6H [facility] Last Admin: 01/12/21 16:06 Dose: 10 mg Documented by: ARNULFO Hydralazine HCl (Hydralazine 20 Mg/Ml Sdv) 4 mg IVPUSH Q2H PRN PRN Reason: elevated blood pressure. Stop: 01/12/21 23:00 Last Admin: 01/12/21 11:22 Dose: 4 mg Documented by: ALUIVAL Lactated Ringer's (Ringers, Lactated) 1,000 mls @ 125 mls/hr IV ASDIRECTED [facility] Stop: 01/12/21 23:00 Last Admin: 01/12/21 07:25 Dose: 125 mls/hr Documented by: ALUIVAL Lidocaine/Sodium Bicarbonate (Lidocaine 1%/Sod Bicarbonate In Ns 8.4% 1 Ml Syringe) 0.25 ml IDERM ONETIME PRN PRN Reason: Prior to IV Start Stop: 01/12/21 23:00 Oxycodone/Acetaminophen (Acetaminophen/Oxycodone 325-5 Mg Tab) 1 - 2 tab PO Q6H PRN PRN Reason: Pain Last Admin: 01/12/21 14:41 Dose: 1 tab Documented by: ALUIVAL Sodium Chloride (Sodium Chloride 0.9% 10 Ml Syringe) 10 ml FLUSH ASDIRECTED PRN PRN Reason: Keep Vein Open Stop: 01/12/21 23:00 - Plan Plan (Free Text/Narrative):: Breana Lopez is a 65-year-old postmenopausal female status post laparoscopic assisted vaginal hysterectomy with bilateral salpingo-oophorectomy, POD #0, kept for observation given urinary retention and hypoxemia with sleeping and required O2 supplementation in postoperative recovery area * Patient was able to void approximately 100 mL of urine. Patient had a sterile straight catheterization with 500 mL of urine returned. We will plan to have the patient try to void again prior to discharge. If she is able to void a normal amount later this evening then we will discharge patient home. * Patient with mild hypoxemia events with sats down into the 88-90's for several seconds while she is sleeping. Her daughter reports that this has been going on for a number of years and also occurred when she had her heart stents placed. Suspect that patient may have obstructive sleep apnea leading to some of her symptoms. * Patient is otherwise meeting milestones * Ambulating short distances without difficulty * Tolerating regular diet and is eating supper at this time * Pain is overall controlled with Percocet. Reports that she is having mild headache at this time. Ibuprofen ordered. * We will continue to monitor patient and if she is able to urinate later this evening we will discharge her home * If patient is not able to be discharged home we will keep overnight for monitoring and will restart her on her home medications Stefano Powers MD 6:06 PM 01/12/2021
[2021-01-13 06:33] VITALS: BP 126/71; PULSE 95
--- NOTE | 2021-01-17 08:18 | PCM.SN.2 ---
- Free Text/Narrative Note: Patient with EKG that was done in the evening of 01/12/2021 after she had complained of upper chest and shoulder pain. Her EKG came back with a read of normal sinus rhythm with a heart rate of 93. There was baseline artifact. There were no acute STT wave changes. There is minimal ST depression in leads V2 and V3. The EKG was compared to preoperative EKG and was overall similar with no significant changes noted. No additional concerns regarding the EKG at this time. Suspect low likelihood of myocardial infarction or other complication at this time. Late entry note with review of EKG that was done in the evening of 01/12/2021. Stefano Powers MD 8:18 AM 01/17/2021
== END 2021-01-12 22:25 | disposition home or self-care (01) ==
LOC: JD.SDS 07:05 → JD.OB 15:21 → JD.SDS 22:25
PROVIDERS: ATTEND Obstetrics & Gynecology
DX: D25.1 Intramural leiomyoma of uterus (principal); N87.9 Dysplasia of cervix uteri, unspecified; N80.0 Endometriosis of uterus; N84.0 Polyp of corpus uteri; N83.311 Acquired atrophy of right ovary; N83.312 Acquired atrophy of left ovary; N88.8 Other specified noninflammatory disorders of cervix uteri; N83.8 Other noninflammatory disorders of ovary, fallopian tube and broad ligament; N73.6 Female pelvic peritoneal adhesions (postinfective); I25.10 Atherosclerotic heart disease of native coronary artery without angina pectoris; E11.9 Type 2 diabetes mellitus without complications; I10 Essential (primary) hypertension; E78.5 Hyperlipidemia, unspecified; E03.9 Hypothyroidism, unspecified; E66.9 Obesity, unspecified; Z68.37 Body mass index [BMI] 37.0-37.9, adult; Z88.0 Allergy status to penicillin; Z88.8 Allergy status to other drugs, medicaments and biological substances; Z79.82 Long term (current) use of aspirin; Z79.84 Long term (current) use of oral hypoglycemic drugs; Z79.890 Hormone replacement therapy; Z79.899 Other long term (current) drug therapy; Z86.010 Personal history of colon polyps; Z95.818 Presence of other cardiac implants and grafts; Z98.890 Other specified postprocedural states
CPT/HCPCS: 36415; 51701; 51798; 58552; 80053; 81001; 82962; 83036; 84484; 85025; 85379; 86850; 86900; 86901; 93005; 94640; A9270; J0360; J1100; J1170; J1885; J2250; J2405; J2704; J2710; J3010; J3490; J7120; 00944; J2370

== ENCOUNTER 2021-06-14 07:02 | Day surgery (SDC) | payer BC ==
[2021-06-14] MEDS ORDERED: Propofol 200 MG/20 ML SDV ONE (07:09)
[2021-06-14] MEDS ORDERED: Lidocaine 1% 4 ML ONE (07:10)
[2021-06-14] MEDS ORDERED: fentaNYL 100 MCG/2 ML SDV ONE (07:11)
[2021-06-14] MEDS ORDERED: Midazolam 1 MG/ML 2 ML SDV ONE (07:11)
--- NOTE | 2021-06-14 07:28 | PCM.PREANE ---
Preanesthetic Assessment - Anesthesia/Transfusion/Family Hx Anesthesia History: Prior Anesthesia Without Reaction Family History of Anesthesia Reaction: No Transfusion History: No Prior Transfusion(s) Intubation History: Unknown - Review of Systems General: No Symptoms Pulmonary: No Symptoms Cardiovascular: No Symptoms Gastrointestinal: No Symptoms Neurological: No Symptoms Other: Reports: None - Physical Assessment NPO Status Date: 06/14/21 NPO Status Time: 22:30 ASA Class: 3 Mental Status: Alert & Oriented x3 Airway Class: Mallampati = 1 Dentition: Reports: Normal Dentition Thyro-Mental Finger Breadths: 3 Mouth Opening Finger Breadths: 3 ROM/Head Extension: Full Lungs: Clear to Auscultation, Normal Respiratory Effort Cardiovascular: Regular Rate, Regular Rhythm (unable to appreciate murmur) - Allergies Allergies/Adverse Reactions: Allergies Allergy/AdvReac Type Severity Reaction Status Date / Time alendronate sodium Allergy Muscle Verified 06/13/21 15:20 [From Fosamax] Aches ciprofloxacin [From Cipro] Allergy Cannot Verified 06/13/21 15:20 Remember naproxen [From Naprosyn] Allergy Hives Verified 06/13/21 15:20 Penicillins AdvReac Tremors Verified 06/13/21 15:20 - Anesthesia Plan Beta Rajwinder: Bisoprolol Med Last Dose Date: 06/13/21 Med Last Dose Time: 22:00 - Acknowledgements Anesthesia Type Planned: MAC Pt an Appropriate Candidate for the Planned Anesthesia: Yes Alternatives and Risks of Anesthesia Discussed w Pt/Guardian: Yes Pt/Guardian Understands and Agrees with Anesthesia Plan: Yes PreAnesthesia Questionnaire HEENT History: Reports: Cataract, Impaired Vision, Sinusitis, Other (See Below) Other HEENT History: wears glasses Cardiovascular History: Reports: CAD, Heart Murmur, High Cholesterol, Hypertension, Stents, Other (See Below) Other Cardiovascular History: chest pain, palpitations Respiratory History: Reports: Other (See Below) Other Respiratory History: acute bronchitis, cough, snoring Gastrointestinal History: Reports: Chronic Diarrhea, Other (See Below) Other Gastrointestinal History: bloody stools, diarrhea, rectal polyp Genitourinary History: Reports: Other (See Below) Other Genitourinary History: dysuria, frequency MANAGER RN CASE History: Other OB/BYN History: post menopausal bleeding Musculoskeletal History: Other Musculoskeletal History: left shoulder pain Neurological History: Reports: Headaches, Chronic Other Neuro History: dizziness, headache Psychiatric History: Reports: Anxiety, Depression, Other (See Below) Other Psychiatric History: fatigue Endocrine/Metabolic History: Reports: Diabetes, Type II, Hypothyroidism, Obesity/BMI 30+ Hematologic History: Reports: None Immunologic History: Reports: Other (See Below) Other Immunologic History: fever Oncologic (Cancer) History: Reports: None Dermatologic History: Reports: Other (See Below) Other Dermatologic History: skin lesion - Infectious Disease History Infectious Disease History: Reports: None - Past Surgical History Head Surgeries/Procedures: Reports: None HEENT Surgical History: Reports: Cataract Surgery, Other (See Below) Other HEENT Surgeries/Procedures: blepharoplasty Cardiovascular Surgical History: Reports: Coronary Artery Stent Respiratory Surgical History: Reports: None GI Surgical History: Reports: Cholecystectomy, Colonoscopy Female Surgical History: Reports: D&C, Hysterectomy, Oophorectomy Other Female Surgeries/Procedures: hysteroscopy Male Surgical History: Reports: None Endocrine Surgical History: Reports: None Neurological Surgical History: Reports: None Musculoskeletal Surgical History: Reports: None Oncologic Surgical History: Reports: None Dermatological Surgical History: Reports: None - SUBSTANCE USE Tobacco Use Status *Q: Never Tobacco User Recreational Drug Use History: No - HOME MEDS Home Medications: Home Meds Bisoprolol/Hydrochlorothiazide [Ziac 10-6.25 MG] 1 tab PO DAILY 07/01/17 [History] Escitalopram Oxalate 10 mg PO DAILY 07/01/17 [History] Multivitamin [Daily Multiple Vitamin] 1 tab PO DAILY 07/01/17 [History] Aspirin [Halfprin] 81 mg PO DAILY 11/24/18 [History] Empagliflozin [Jardiance] 25 mg PO DAILY 11/16/20 [History] Levothyroxine 112 mcg PO DAILY 11/16/20 [History] lisinopriL [Lisinopril] 5 mg PO DAILY 11/16/20 [History] metFORMIN [Glucophage XR] 1,000 mg PO BID 11/16/20 [History] Ascorbic Acid [Vitamin C] 2,000 mg PO DAILY 06/13/21 [History] atorvaSTATin Calcium [Atorvastatin Calcium] 40 mg PO DAILY 06/13/21 [History] - CURRENT (IN HOUSE) MEDS Current Meds: Current Medications Lactated Ringer's (Ringers, Lactated) 1,000 mls @ 125 mls/hr IV ASDIRECTED [facility] Stop: 06/14/21 23:00 Lidocaine/Sodium Bicarbonate (Lidocaine 1%/Sod Bicarbonate In Ns 8.4% 1 Ml Syringe) 0.25 ml IDERM ONETIME PRN PRN Reason: Prior to IV Start Stop: 06/14/21 18:00 Sodium Chloride (Sodium Chloride 0.9% 10 Ml Syringe) 10 ml FLUSH ASDIRECTED PRN PRN Reason: Keep Vein Open Stop: 06/14/21 18:00 Discontinued Medications Fentanyl (Fentanyl 100 Mcg/2 Ml Sdv) Confirm Administered Dose 100 mcg .ROUTE .STK-MED ONE Stop: 06/14/21 07:12 Lidocaine HCl (Xylocaine-Mpf 1%) Confirm Administered Dose 4 mls @ as directed .ROUTE .STK-MED ONE Stop: 06/14/21 07:11 Midazolam HCl (Midazolam 1 Mg/Ml 2 Ml Sdv) Confirm Administered Dose 2 mg .ROUTE .STK-MED ONE Stop: 06/14/21 07:12 Propofol (Propofol 200 Mg/20 Ml Sdv) Confirm Administered Dose 200 mg .ROUTE .STK-MED ONE Stop: 06/14/21 07:10
--- NOTE | 2021-06-14 08:47 | PCM48HPAN ---
Post Anesthesia Note - EVALUATION WITHIN 48HRS OF ANESTHETIC Vital Signs in Normal Range: Yes Patient Participated in Evaluation: Yes Respiratory Function Stable: Yes Airway Patent: Yes Cardiovascular Function Stable: Yes Hydration Status Stable: Yes Pain Control Satisfactory: Yes Nausea and Vomiting Control Satisfactory: Yes Mental Status Recovered: Yes Vital Signs: Last Vital Signs Temp 36.8 C 06/14/21 07:20 Pulse 51 L 06/14/21 07:20 Resp 18 06/14/21 07:20 BP 125/61 06/14/21 07:20 Pulse Ox 95 06/14/21 07:20
--- NOTE | 2021-06-14 08:49 | PCM.PRNOTE ---
- Free Text/Narrative Note: Date: 06/14/2021 Procedure: screening colonoscopy History: last scope in 2017 with single rectal tubular adenoma removed. Mother and father both diagnosed with colon cancer. Endoscopist: Andrews Stern MD Findings: excellent prep. Cecum visualized. 6 small polyps identified and removed. Sigmoid diverticulosis. Detailed Report: The patient was taken to the endoscopy suite and placed in left lateral decubitus position. Timeout was performed and monitored anesthesia care was initiated. The anus appeared normal. Digital rectal exam was unremarkable. The colonoscope was inserted and advanced to the cecum with ease. The appendiceal orifice and ileocecal valve were well visualized. The prep was excellent. A subcentimeter sessile polyp was identified near the appendiceal orifice; this was removed using hot snare polypectomy technique. The scope was slowly withdrawn and mucosal surfaces carefully inspected. Within the transverse colon, 2 small polyps were identified and removed. 2 small polyps were identified within the sigmoid colon and removed using either hot snare polypectomy or cold forceps. There was moderate diverticular disease of the sigmoid colon. On additional subcentimeter polyp was identified in the proximal rectum, and this was removed using cold forceps. On retroflexion, no hemorrhoidal disease or other pathology was appreciated. Air was suctioned from the distal colon and rectum prior to withdrawal of the scope. The patient tolerated the procedure well.
[2021-06-14 10:41] VITALS: BP 134/82; PULSE 63
== END 2021-06-14 10:25 | disposition home or self-care (01) ==
LOC: JD.SDS 07:02
PROVIDERS: ATTEND Surgery
DX: Z12.11 Encounter for screening for malignant neoplasm of colon (principal); D12.0 Benign neoplasm of cecum; D12.3 Benign neoplasm of transverse colon; D12.5 Benign neoplasm of sigmoid colon; D12.8 Benign neoplasm of rectum; K57.30 Diverticulosis of large intestine without perforation or abscess without bleeding; I25.10 Atherosclerotic heart disease of native coronary artery without angina pectoris; I10 Essential (primary) hypertension; E78.5 Hyperlipidemia, unspecified; E03.9 Hypothyroidism, unspecified; E11.9 Type 2 diabetes mellitus without complications; Z88.0 Allergy status to penicillin; Z88.8 Allergy status to other drugs, medicaments and biological substances; Z85.038 Personal history of other malignant neoplasm of large intestine; Z80.0 Family history of malignant neoplasm of digestive organs; Z79.82 Long term (current) use of aspirin; Z79.890 Hormone replacement therapy; Z79.84 Long term (current) use of oral hypoglycemic drugs; Z98.890 Other specified postprocedural states
CPT/HCPCS: 45380; 45385; 82947; J2250; J2704; J3010; J7120; 00812